=== PATIENT | female | born 1945 | race African-American/Black ===

== ENCOUNTER 2019-02-05 22:00 | Emergency (ER) | payer MEDICARE ==
[~2019-02-05] VITALS: Ht 157.5 cm; Wt 72.6 kg
[2019-02-05 22:00] VITALS: BP 149/73
== END 2019-02-05 23:11 | disposition home or self-care (01) ==
LOC: ER 22:06
DX: L08.9 Local infection of the skin and subcutaneous tissue, unspecified (principal); I10 Essential (primary) hypertension; Z88.2 Allergy status to sulfonamides; Z88.5 Allergy status to narcotic agent

== ENCOUNTER 2019-07-30 11:57 | Emergency (ER) | payer MEDICARE ==
[~2019-07-30] VITALS: Ht 152.4 cm; Wt 69.4 kg
--- NOTE | 2019-07-30 12:11 | NUR ---
PT AMBULATORY TO ER BED 10 C/O FEELING DIZZY, ABDOMINAL CRAMPING W/ NAUSEA X 2 DAYS. PT DENIES ANY FEVER AND SORE THROAT. 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 PT GOWNED AND PLACED ON MONITOR. VSS. AWAITING MD HOWELL.
--- NOTE | 2019-07-30 12:23 | NUR ---
DR DODSON AT BEDSIDE FOR EVAL.
[2019-07-30] MEDS ORDERED: IV NS 0.9% 1,000 ML BAG IV ONE (12:30)
[2019-07-30 12:48] LABS: BASOPHILS % (AUTO) 0.4 % (0.0-2.0); EOSINOPHILS % (AUTO) 0.1 % (0.0-6.0); HEMATOCRIT 42 % (33-45); HEMOGLOBIN 13.9 g/dL (11.5-14.8); LYMPHOCYTES # (AUTO) 0.5 /CMM (0.8-4.8); LYMPHOCYTES % (AUTO) 13.6 % (20.0-44.0); MEAN CORPUSCULAR HGB CONC 33 g/dl (31.0-36.0); MEAN CORPUSCULAR VOLUME 88 fL (82-100); MONOCYTES # (AUTO) 0.5 /CMM (0.1-1.30); MONOCYTES % (AUTO) 13.3 % (2.0-12.0); NEUTROPHILS # (AUTO) 2.8 /CMM (1.8-8.9); NEUTROPHILS % (AUTO) 72.6 % (43.0-81.0); PLATELET COUNT (AUTO) 275 /CMM (150-450); RED BLOOD CELL COUNT(AUTO) 4.82 MIL/uL (4.0-5.2); WHITE BLOOD COUNT (AUTO) 3.9 K/uL (4.3-11.0)
[2019-07-30 13:00] LABS: CALCIUM, SERUM 9.5 mg/dL (8.5-10.1); CARBON DIOXIDE 33 mmol/L (21-32); CHLORIDE 97 mmol/L (98-107); CREATININE 1.2 mg/dL (0.6-1.3); GLUCOSE 103 mg/dL (74-106); POTASSIUM 3.2 mmol/L (3.5-5.1); SODIUM SERUM 135 mmol/L (136-145); UREA NITROGEN, BLOOD 13 mg/dL (7-18)
[2019-07-30 13:04] LABS: APPEARANCE,URINE Clear (CLEAR); BILIRUBIN,URINE Negative (NEGATIVE); BLOOD, URINE Negative Ery/uL (NEGATIVE); COLOR,URINE Yellow (YELLOW); KETONES,URINE Negative (NEGATIVE); LEUKOCYTE ESTERASE ,URINE Negative (NEGATIVE); NITRITE, URINE Negative (NEGATIVE); PH,URINE 6.5 (5.0-8.0); PROTEIN,URINE Negative (NEGATIVE); UGLUCOSE Negative (NEGATIVE); UROBILINOGEN,URINE 0.2 EU/dL (0.2)
[2019-07-30 13:07] LABS: ALANINE AMINOTRANSFERASE 18 U/L (12-78); ALBUMIN 3.8 g/dL (3.4-5.0); ALKALINE PHOSPHATASE 95 U/L (46-116); ASPARTATE AMINOTRANSFERASE 30 U/L (15-37); BILIRUBIN,DIRECT 0.2 mg/dL (0.0-0.2); BILIRUBIN,TOTAL 0.7 mg/dL (0.2-1.0); LIPASE 130 U/L (73-393); TOTAL PROTEIN, SERUM 8.6 g/dL (6.4-8.2)
--- NOTE | 2019-07-30 13:08 | NUR ---
PT TO RADIOLOGY FOR ABDOMINAL CT SCAN VIA [facility].
[2019-07-30] MEDS ORDERED: POTASSIUM CHLORIDE 20 MEQ TAB.PRT.SR PO ONE ×2 (13:30→13:41)
--- NOTE | 2019-07-30 13:52 | NUR ---
COVID SWAB OBTAINED AND SENT TO LAB.
--- NOTE | 2019-07-30 13:52 | NUR ---
Miky morris in [facility] - 07/30/19 at 1403 by DOLLY HIGINIO GRAVES OBTAINED AND SENT TO LAB.
--- NOTE | 2019-07-30 14:06 | NUR ---
Patient discharged to home in stable condition. Written and verbal after care instructions given. Patient verbalizes understanding of instruction.IV removed. Catheter intact and site benign. Pressure and 4x4 applied to site. No bleeding noted.
[2019-07-30 14:07] VITALS: BP 128/74
--- NOTE | 2019-08-01 04:38 | NUR ---
RECEIVED CALL FROM LAB REGARDING COVID RESULT. PT POSITIVE.
== END 2019-07-30 14:07 | disposition home or self-care (01) ==
LOC: ER 12:03
DX: E87.6 Hypokalemia (principal); U07.1 COVID-19; R11.0 Nausea; R94.2 Abnormal results of pulmonary function studies; I10 Essential (primary) hypertension; Z88.6 Allergy status to analgesic agent; Z88.2 Allergy status to sulfonamides; R94.31 Abnormal electrocardiogram [ECG] [EKG]
CPT/HCPCS: 36415; 74176; 80048; 80076; 81001; 83690; 84484; 85025; 93005; 99285; J7030; 81000-TC; C9803-CS; U0003-CS

== ENCOUNTER 2019-08-11 13:30 | Emergency (ER) | payer MEDICARE ==
[~2019-08-11] VITALS: Ht 154.9 cm; Wt 68.9 kg
[2019-08-11 13:40] VITALS: BP 150/94
--- NOTE | 2019-08-11 15:45 | NUR ---
COVID TESTING DONE & SENT TO LAB.
== END 2019-08-11 15:46 | disposition home or self-care (01) ==
LOC: ER 13:31
DX: U07.1 COVID-19 (principal); I10 Essential (primary) hypertension
CPT/HCPCS: C9803-CS; U0003-CS